=== PATIENT | male | born 1985 | race Hispanic/Latino ===

== ENCOUNTER 2018-10-03 12:56 | Emergency (ER) | payer OTHER ==
[2018-10-03] MEDS ORDERED: DEXAMETHASONE SOD PHOSPHATE 10MG/ML 1ML VIAL ONE (14:01)
[2018-10-03] MEDS ORDERED: KETOROLAC TROMETHAMINE 60 MG/2 ML VIAL ONE (14:01)
== END 2018-10-03 14:29 | disposition home or self-care (01) ==
LOC: EDH 12:56
DX: S33.5XXA Sprain of ligaments of lumbar spine, initial encounter (principal); Z72.0 Tobacco use; X50.0XXA Overexertion from strenuous movement or load, initial encounter; Y93.89 Activity, other specified; Y92.89 Other specified places as the place of occurrence of the external cause; Y99.8 Other external cause status
CPT/HCPCS: 96372 ×2; 99284; J1100; J1885

== ENCOUNTER 2018-12-17 12:42 | Emergency (ER) | payer OTHER | END 2018-12-17 15:01 | disposition home or self-care (01) | LOC: EDH 12:42 | DX: L02.11 Cutaneous abscess of neck (principal); D17.0 Benign lipomatous neoplasm of skin and subcutaneous tissue of head, face and neck; Z72.0 Tobacco use ==

== ENCOUNTER 2019-03-05 11:40 | Emergency (ER) | payer SELFPAY ==
[2019-03-05] MEDS ORDERED: DEXAMETHASONE SOD PHOSPHATE 10MG/ML 1ML VIAL ONE (12:30)
== END 2019-03-05 12:45 | disposition home or self-care (01) ==
LOC: EDH 11:40
DX: J02.9 Acute pharyngitis, unspecified (principal); J20.9 Acute bronchitis, unspecified; Z72.0 Tobacco use
CPT/HCPCS: 96372; 99283; J1100

== ENCOUNTER 2020-07-14 14:07 | Emergency (ER) | payer SELFPAY ==
[2020-07-14] MEDS ORDERED: KETOROLAC TROMETHAMINE 60 MG/2 ML VIAL ONE (14:56)
[2020-07-14] MEDS ORDERED: HYDROCODONE/ACETAMINOPHEN 10/325 MG TAB ONE (14:56)
== END 2020-07-14 15:40 | disposition home or self-care (01) ==
LOC: EDH 14:07
DX: S20.212A Contusion of left front wall of thorax, initial encounter (principal); V86.59XA Driver of other special all-terrain or other off-road motor vehicle injured in nontraffic accident, initial encounter; Y93.89 Activity, other specified; Y92.9 Unspecified place or not applicable; Y99.8 Other external cause status
CPT/HCPCS: 71101; 96372; 99283; J1885